=== PATIENT | female | born 1970 | race Caucasian/White ===

== ENCOUNTER 2018-04-24 17:23 | Emergency (ER) | payer OTHER ==
[2018-04-24] MEDS: LIDOCAINE 4% CR TOP (19:38)
== END 2018-04-24 20:47 | disposition home or self-care (01) ==
LOC: FTE 17:23
DX: L02.211 Cutaneous abscess of abdominal wall (principal); J45.909 Unspecified asthma, uncomplicated; F17.210 Nicotine dependence, cigarettes, uncomplicated
CPT/HCPCS: 10060; 99283-25

== ENCOUNTER 2018-06-27 10:01 | Inpatient (IN) | payer SELFPAY ==
[2018-06-27] MEDS: NALOXONE (0.4 MG/ML) INJ IV (11:01)
[2018-06-27] MEDS: SOD CHLORIDE 0.9% 1,000 ML IV ×2 (11:01→23:16)
[2018-06-27] MEDS ORDERED: LORAZEPAM 2 MG INJ (11:25)
[2018-06-27] MEDS: LORAZEPAM 2 MG INJ IM (11:41)
[2018-06-27 11:42] LABS: ABNORMAL IP MESSAGE 1; HEMATOCRIT 36.5 % (37.0-47.0); MEAN CORPUSCULAR HEMOGLOBIN 22.9 pg (29.0-33.0); MEAN CORPUSCULAR HGB CONC 32.9 g/dl (32.0-37.0); MEAN CORPUSCULAR VOLUME 69.8 fl (82.0-101.0); MEAN PLATELET VOLUME 9.8 fl (7.4-10.4); PLATELET COUNT 434 10^3/UL (140-415); RED BLOOD COUNT 5.23 10^6/ul (4.20-5.40); RED CELL DISTRIBUTION WIDTH 15.8 % (11.5-14.5)
[2018-06-27 11:42] LABS: WHITE BLOOD COUNT 27.4 10^3/ul (4.8-10.8)
[2018-06-27 11:50] LABS: ADD MAN DIFF? YES; POSITIVE DIFF @See below
[2018-06-27 12:07] LABS: ALBUMIN/GLOBULIN RATIO 0.82; ANION GAP 15 (5-13); BILIRUBIN,TOTAL 0.3 mg/dl (0.2-1.3); Estimated GFR > 60 mL/min (>60); SODIUM 137 mmol/L (135-144)
[2018-06-27 12:08] LABS: ALANINE AMINOTRANSFERASE 37 IU/L (13-69); ALBUMIN 4.1 g/dl (3.3-4.9); ALKALINE PHOSPHATASE 149 IU/L (42-121); ASPARTATE AMINO TRANSFERASE 99 IU/L (15-46); BILIRUBIN,INDIRECT 0.3 mg/dl (0-1.1); BLOOD UREA NITROGEN 24 mg/dl (7-20); CALCIUM 9.8 mg/dl (8.4-10.2); CARBON DIOXIDE 22 mmol/L (21-31); CHLORIDE 100 mmol/L (97-110); CREATININE 0.85 mg/dl (0.44-1.00); ETHANOL < 10.0 mg/dl (0-0); GLUCOSE 122 mg/dl (70-220); TOTAL PROTEIN 9.1 g/dl (6.1-8.1)
[2018-06-27 12:14] LABS: INR 1.19; PROTIME 15.2 Sec (11.9-14.9); PT RATIO 1.2
[2018-06-27 12:15] LABS: PARTIAL THROMBOPLASTIN TIME 42.1 Sec (23.0-35.0)
[2018-06-27] MEDS: LORAZEPAM 2 MG INJ IV ×2 (12:36→12:43)
[2018-06-27 12:45] LABS: BAND NEUTROPHILS % (M) 4 % (0-4); BURR CELLS 3+ (0-0); LYMPHOCYTES #M 2.1 10^3/ul (0.8-2.9); LYMPHOCYTES % (M) 8 % (15-51); MONOCYTE #M 0.5 10^3/ul (0.3-0.9); MONOCYTES % (M) 2 % (0-11); PLATELET ESTIMATE NORMAL; POLYCHROMASIA 1+ (0-0); SEG NEUT #M 23.8 10^3/ul (1.6-7.5); SEGMENTED NEUTROPHILS (M) % 86 % (39-77); SMUDGE%M 1 % (0-0)
[2018-06-27] MEDS: SODIUM CHLORIDE 0.9% 1L BAG IV* (13:00)
[2018-06-27] MEDS: HALOPERIDOL 5 MG INJ IM (13:10)
[2018-06-27 13:25] LABS: ADD UMIC YES; UR ASCORBIC ACID NEGATIVE (NEGATIVE); UR BACTERIA MODERATE /HPF (NONE SEEN); UR BILIRUBIN (Dip) NEGATIVE (NEGATIVE); UR BLOOD (Dip) 2+ mg/dL (NEGATIVE); UR CLARITY CLOUDY (CLEAR); UR COLOR AMBER (YELLOW); UR GLUCOSE (Dip) NEGATIVE (NEGATIVE); UR HYALINE CAST FEW /HPF (NONE SEEN); UR KETONES (Dip) TRACE mg/dL (NEGATIVE); UR LEUKOCYTE ESTERASE (Dip) 3+ Leu/ul (NEGATIVE); UR MUCUS MODERATE /HPF (NONE SEEN); UR NITRITE (Dip) POSITIVE (NEGATIVE); UR RBC 5 /HPF (0-5); UR RENAL EPITHELIAL CELL FEW /HPF (NONE SEEN); UR SPECIFIC GRAVITY (Dip) 1.021 (1.003-1.030); UR TOTAL PROTEIN (Dip) 1+ mg/dl (NEGATIVE); UR UROBILINOGEN (Dip) 2+ mg/dL (NEGATIVE); UR WBC 42 /HPF (0-5)
[2018-06-27 13:27] LABS: TROPONIN-I < 0.012 ng/ml (0.000-0.120)
[2018-06-27 13:36] LABS: BARBITURATES Negative (NEGATIVE); BENZODIAZEPINES Negative (NEGATIVE); CANNABINOIDS Negative (NEGATIVE); COCAINE Negative (NEGATIVE)
[2018-06-27 13:37] LABS: OPIATES Positive (NEGATIVE)
[2018-06-27 13:49] LABS: AMPHETAMINE/METHAMPHETAMINE POSITIVE (NEGATIVE)
[2018-06-27] MEDS ORDERED: SOD CHLORIDE 0.9% 1,000 ML IV (14:12)
[2018-06-27] MEDS ORDERED: CEFEPIME 2GM/50 ML (PMX) 50 ML IVPB (14:12)
[2018-06-27] MEDS ORDERED: ACETAMINOPHEN 325 MG TAB PO (14:30)
[2018-06-27] MEDS ORDERED: NACL 0.9% 3 ML SYG IV (14:30)
[2018-06-27] MEDS ORDERED: ACETAMINOPHEN 650 MG SUPP PR (14:30)
[2018-06-27] MEDS ORDERED: ONDANSETRON 4 MG INJ IV ×2 (14:30)
[2018-06-27] MEDS ORDERED: VANCOMYCIN IV PER PHARMACY XX (14:30)
[2018-06-27] MEDS: CEFEPIME 1GM/50 ML (PMX) 50 ML IVPB ×2 (14:51→23:17)
[2018-06-27] MEDS ORDERED: LABETALOL HCL 20MG INJ IV (15:00)
[2018-06-27] MEDS: VANCOMYCIN 1 GM (PMX) 250 ML IVPB (15:00)
[2018-06-27 16:47] LABS: ETHANOL < 10.0 mg/dl (0-0); LACTIC ACID 1.1 mmol/L (0.5-2.0)
[2018-06-27] MEDS: FAMOTIDINE 20 MG INJ IV (23:17)
[2018-06-28] MEDS: SODIUM CHLORIDE 0.9% 1L BAG IV*
[2018-06-28] MEDS: SOD CHLORIDE 0.9% 1,000 ML IV ×2 (02:54→15:24)
[2018-06-28] MEDS: VANCOMYCIN 750 MG (PMX) 250 ML IVPB ×2 (05:30→18:14)
[2018-06-28 05:50] LABS: ADD MAN DIFF? NO
[2018-06-28 05:55] LABS: WHITE BLOOD COUNT 17.4 10^3/ul (4.8-10.8)
[2018-06-28 05:55] LABS: BASOPHILS % 0.2 % (0.0-2.0); HEMATOCRIT 36.9 % (37.0-47.0); HEMOGLOBIN 11.7 g/dl (12.0-16.0); LYMPHOCYTES # 1.5 10^3/ul (0.8-2.9); LYMPHOCYTES % 8.7 % (15.0-51.0); MEAN CORPUSCULAR HEMOGLOBIN 22.8 pg (29.0-33.0); MEAN CORPUSCULAR HGB CONC 31.7 g/dl (32.0-37.0); MEAN CORPUSCULAR VOLUME 71.8 fl (82.0-101.0); MONOCYTE # 0.8 10^3/ul (0.3-0.9); MONOCYTES % 4.8 % (0.0-11.0); NEUTROPHILS % 85.7 % (39.0-77.0); PLATELET COUNT 419 10^3/UL (140-415); RED BLOOD COUNT 5.14 10^6/ul (4.20-5.40); RED CELL DISTRIBUTION WIDTH 16.6 % (11.5-14.5)
[2018-06-28 06:32] LABS: ALANINE AMINOTRANSFERASE 27 IU/L (13-69); ALBUMIN 3.4 g/dl (3.3-4.9); ALBUMIN/GLOBULIN RATIO 0.77; ALKALINE PHOSPHATASE 117 IU/L (42-121); ANION GAP 11 (5-13); ASPARTATE AMINO TRANSFERASE 67 IU/L (15-46); BILIRUBIN,INDIRECT 0.2 mg/dl (0-1.1); BILIRUBIN,TOTAL 0.2 mg/dl (0.2-1.3); BLOOD UREA NITROGEN 16 mg/dl (7-20); CALCIUM 8.6 mg/dl (8.4-10.2); CARBON DIOXIDE 19 mmol/L (21-31); CHLORIDE 112 mmol/L (97-110); CREATININE 0.68 mg/dl (0.44-1.00); Estimated GFR > 60 mL/min (>60); GLUCOSE 78 mg/dl (70-220); MAGNESIUM 2.2 mg/dl (1.7-2.5); POTASSIUM 4.2 mmol/L (3.5-5.1); SODIUM 142 mmol/L (135-144); TOTAL PROTEIN 7.8 g/dl (6.1-8.1)
[2018-06-28 07:06] LABS: HEMOGLOBIN A1C 5.9 % (0-5.9)
[2018-06-28] MEDS: FAMOTIDINE 20 MG INJ IV ×2 (09:06→21:08)
[2018-06-28] MEDS: CEFEPIME 1GM/50 ML (PMX) 50 ML IVPB ×2 (09:07→21:08)
[2018-06-28] MEDS: THIAMINE 100 MG TAB PO (21:14)
[2018-06-28] MEDS: LORAZEPAM 2 MG INJ IV (23:39)
[2018-06-29] MEDS: SOD CHLORIDE 0.9% 1,000 ML IV ×2 (00:06→08:06)
[2018-06-29 03:23] LABS: WHITE BLOOD COUNT 14.1 10^3/ul (4.8-10.8)
[2018-06-29 03:23] LABS: ADD MAN DIFF? NO; BASOPHIL # 0.1 10^3/ul (0.0-0.1); BASOPHILS % 0.4 % (0.0-2.0); EOSINOPHILS % 0.1 % (0.0-7.0); HAAIG REFLEX REFLEX FILED; HEMATOCRIT 32.5 % (37.0-47.0); HEMOGLOBIN 10.7 g/dl (12.0-16.0); LYMPHOCYTES # 2.3 10^3/ul (0.8-2.9); LYMPHOCYTES % 16.1 % (15.0-51.0); MEAN CORPUSCULAR HGB CONC 32.9 g/dl (32.0-37.0); MEAN CORPUSCULAR VOLUME 69.7 fl (82.0-101.0); MEAN PLATELET VOLUME 9.5 fl (7.4-10.4); MONOCYTE # 1.1 10^3/ul (0.3-0.9); MONOCYTES % 7.6 % (0.0-11.0); NEUTROPHIL # 10.6 10^3/ul (1.6-7.5); NEUTROPHILS % 75.3 % (39.0-77.0); PLATELET COUNT 376 10^3/UL (140-415); RED BLOOD COUNT 4.66 10^6/ul (4.20-5.40); RED CELL DISTRIBUTION WIDTH 16.6 % (11.5-14.5)
[2018-06-29 03:41] LABS: IRON 65 ug/dl (35-150)
[2018-06-29 03:42] LABS: ALANINE AMINOTRANSFERASE 23 IU/L (13-69); ALBUMIN 3.3 g/dl (3.3-4.9); ALBUMIN/GLOBULIN RATIO 0.78; ALKALINE PHOSPHATASE 98 IU/L (42-121); ANION GAP 9 (5-13); ASPARTATE AMINO TRANSFERASE 56 IU/L (15-46); BILIRUBIN,INDIRECT 0.3 mg/dl (0-1.1); BILIRUBIN,TOTAL 0.3 mg/dl (0.2-1.3); BLOOD UREA NITROGEN 12 mg/dl (7-20); CALCIUM 8.6 mg/dl (8.4-10.2); CARBON DIOXIDE 22 mmol/L (21-31); CHLORIDE 106 mmol/L (97-110); CREATININE 0.57 mg/dl (0.44-1.00); Estimated GFR > 60 mL/min (>60); GLUCOSE 137 mg/dl (70-220); SODIUM 137 mmol/L (135-144); TOTAL PROTEIN 7.5 g/dl (6.1-8.1)
[2018-06-29 03:42] LABS: PHOSPHORUS 2.6 mg/dl (2.5-4.9)
[2018-06-29 03:44] LABS: INR 0.95; PROTIME 12.8 Sec (11.9-14.9)
[2018-06-29 03:52] LABS: % IRON SATURATION 25 % SAT (22-52); TOTAL IRON BINDING CAPACITY 264 ug/dl (241-421)
[2018-06-29 03:55] LABS: POTASSIUM 2.8 mmol/L (3.5-5.1)
[2018-06-29 04:14] LABS: HEPATITIS B SURFACE ANTIGEN NEGATIVE (NEGATIVE)
[2018-06-29 04:31] LABS: HEPATITIS B CORE ANTIBODY REACTIVE (NEGATIVE)
[2018-06-29 04:41] LABS: HEPATITIS C VIRAL ANTIBODY REACTIVE (NEGATIVE)
[2018-06-29 04:48] LABS: FOLATE 7.5 ng/ml (2.8-20.0)
[2018-06-29] MEDS: VANCOMYCIN 750 MG (PMX) 250 ML IVPB ×3 (05:59→21:52)
[2018-06-29] MEDS: POTASSIUM CHLORIDE (SR) 20 MEQ TAB PO (06:05)
[2018-06-29] MEDS: FAMOTIDINE 20 MG INJ IV ×2 (08:38→20:20)
[2018-06-29] MEDS: CEFEPIME 1GM/50 ML (PMX) 50 ML IVPB ×2 (08:40→23:10)
[2018-06-29] MEDS: THIAMINE 100 MG TAB PO (09:00)
[2018-06-29] MEDS: POTASSIUM CHLORIDE 20 MEQ POWDER FOR ORAL SOLN PO ×2 (14:48→20:20)
[2018-06-29] MEDS ORDERED: DOCUSATE SODIUM 100 MG CAP PO ×2 (15:00)
[2018-06-29] MEDS: LORAZEPAM 2 MG INJ IV (20:22)
[2018-06-30] MEDS: VANCOMYCIN 750 MG (PMX) 250 ML IVPB ×3 (04:36→19:50)
[2018-06-30] MEDS: LORAZEPAM 2 MG INJ IV ×2 (04:36→17:50)
[2018-06-30 06:19] LABS: ADD MAN DIFF? NO
[2018-06-30 06:24] LABS: BASOPHILS % 0.3 % (0.0-2.0); EOSINOPHILS # 0.1 10^3/ul (0.0-0.5); EOSINOPHILS % 0.5 % (0.0-7.0); HEMATOCRIT 36.3 % (37.0-47.0); HEMOGLOBIN 11.4 g/dl (12.0-16.0); LYMPHOCYTES # 2.9 10^3/ul (0.8-2.9); MEAN CORPUSCULAR HEMOGLOBIN 22.7 pg (29.0-33.0); MEAN CORPUSCULAR HGB CONC 31.4 g/dl (32.0-37.0); MEAN CORPUSCULAR VOLUME 72.2 fl (82.0-101.0); MEAN PLATELET VOLUME 10.1 fl (7.4-10.4); MONOCYTES % 8.7 % (0.0-11.0); NEUTROPHIL # 7.1 10^3/ul (1.6-7.5); PLATELET COUNT 358 10^3/UL (140-415); RED BLOOD COUNT 5.03 10^6/ul (4.20-5.40); RED CELL DISTRIBUTION WIDTH 16.9 % (11.5-14.5)
[2018-06-30 06:24] LABS: WHITE BLOOD COUNT 11.1 10^3/ul (4.8-10.8)
[2018-06-30 07:18] LABS: AMMONIA 17 umol/l (9-30)
[2018-06-30 08:09] LABS: ANION GAP 14 (5-13); BLOOD UREA NITROGEN 6 mg/dl (7-20); CARBON DIOXIDE 23 mmol/L (21-31); CHLORIDE 101 mmol/L (97-110); CREATININE 0.46 mg/dl (0.44-1.00); Estimated GFR > 60 mL/min (>60); GLUCOSE 125 mg/dl (70-220); POTASSIUM 4.3 mmol/L (3.5-5.1); SODIUM 138 mmol/L (135-144)
[2018-06-30] MEDS: FAMOTIDINE 20 MG INJ IV ×2 (09:00→22:01)
[2018-06-30] MEDS: THIAMINE 100 MG TAB PO (09:00)
[2018-06-30] MEDS: POTASSIUM CHLORIDE 20 MEQ POWDER FOR ORAL SOLN PO ×2 (09:00→12:28)
[2018-06-30] MEDS: ENOXAPARIN 40 MG/0.4 ML SYG SC (09:01)
[2018-06-30] MEDS: HALOPERIDOL 5 MG INJ IM (09:05)
[2018-06-30] MEDS: CEFEPIME 1GM/50 ML (PMX) 50 ML IVPB ×2 (09:38→22:01)
[2018-06-30 11:16] LABS: VANCOMYCIN,TROUGH 14.2 ug/ml (10.0-20.0)
[2018-06-30] MEDS: METHADONE 5 MG TAB PO ×2 (15:17→23:28)
[2018-06-30] MEDS ORDERED: ACETAMINOPHEN 325 MG TAB PO (18:30)
[2018-07-01] MEDS: VANCOMYCIN 750 MG (PMX) 250 ML IVPB ×2 (04:08→11:19)
[2018-07-01] MEDS: FAMOTIDINE 20 MG INJ IV (08:40)
[2018-07-01] MEDS: THIAMINE 100 MG TAB PO (08:40)
[2018-07-01] MEDS: METHADONE 5 MG TAB PO (08:40)
[2018-07-01] MEDS: POTASSIUM CHLORIDE 20 MEQ POWDER FOR ORAL SOLN PO (08:41)
[2018-07-01] MEDS: ENOXAPARIN 40 MG/0.4 ML SYG SC (08:45)
[2018-07-01] MEDS: CEFEPIME 1GM/50 ML (PMX) 50 ML IVPB (08:49)
[2018-07-02 00:42] LABS: HEPATITIS B SURFACE ANTIGEN NON-REACTIVE (NON-REACTIVE)
== END 2018-07-01 14:05 | disposition left against medical advice (07) | DRG 871 ==
LOC: 5EC 06-29 18:00 → E/R 10:01 → 6WM 06-28 06:01
PROVIDERS: Internal Medicine
DX: A41.01 Sepsis due to Methicillin susceptible Staphylococcus aureus (principal); G92 Toxic encephalopathy; N39.0 Urinary tract infection, site not specified; A41.51 Sepsis due to Escherichia coli [E. coli]; F15.10 Other stimulant abuse, uncomplicated; F11.10 Opioid abuse, uncomplicated; R62.7 Adult failure to thrive; Z68.21 Body mass index [BMI] 21.0-21.9, adult; Z59.0 Homelessness; T68.XXXA Hypothermia, initial encounter; X58.XXXA Exposure to other specified factors, initial encounter; D64.9 Anemia, unspecified
CPT/HCPCS: 36415; 70450; 71045; 80048; 80053; 80202; 80307; 81001; 82140; 82607; 82728; 82746; 83036; 83540; 83605; 83735; 84100; 84443; 84484; 84703; 85025; 85610; 85730; 86704; 86709; 86803; 87040; 87086; 87340; 93005; 96372; 96374; 96375; 97161; 99285-25

== ENCOUNTER 2018-10-01 20:52 | Emergency (ER) | payer OTHER ==
[2018-10-02] MEDS: traMADol 50 MG TAB PO ×2 (00:04→03:25)
[2018-10-02] MEDS: KETOROLAC 60 MG INJ IM (00:04)
[2018-10-02] MEDS: LIDOCAINE 1% (MDV) 20 ML INJ SC (00:29)
[2018-10-02] MEDS: ACETAMINOPHEN 500 MG TAB PO (03:23)
[2018-10-02] MEDS: TRIMETHOPRIM/SULFAMETHOX (DS) TAB PO (03:24)
[2018-10-02] MEDS: LIDOCAINE 1% (MPF) 5 ML VIAL INFIL (03:24)
[2018-10-02] MEDS: CEFTRIAXONE 1 GM INJ IM (03:24)
== END 2018-10-02 04:17 | disposition home or self-care (01) ==
LOC: FTE 10-02 04:17
DX: L02.413 Cutaneous abscess of right upper limb (principal); F11.10 Opioid abuse, uncomplicated; F17.210 Nicotine dependence, cigarettes, uncomplicated; J45.909 Unspecified asthma, uncomplicated
CPT/HCPCS: 10060; 81025; 96372; 99284-25

== ENCOUNTER 2018-11-04 05:38 | Emergency (ER) | payer SELFPAY, OTHER | END 2018-11-04 06:55 | disposition left against medical advice (07) | LOC: E/R 05:38 | DX: Z53.21 Procedure and treatment not carried out due to patient leaving prior to being seen by health care provider (principal) ==